=== PATIENT | female | born 1965 | race Caucasian/White ===

== ENCOUNTER → 2022-06-03 14:04 | Outpatient (CLI) | payer BC, SELFPAY ==
--- NOTE | ~2022-06-03 | MM_ITS ---
EXAMINATION: MM screening [facility] HISTORY: Screening TECHNIQUE: Craniocaudal and mediolateral oblique 3-D tomosynthesis images were obtained and synthetic 2-D images were generated. CAD analysis was submitted and interpreted. COMPARISON: Comparison to multiple prior studies sequentially, with oldest reviewed study dated 05/2012. BREAST PARENCHYMAL COMPOSITION: Breast composed of scattered areas of fibroglandular density FINDINGS: There is no evidence of suspicious mass, calcification, or architectural distortion to sugg est malignancy in either breast. There has been no suspicious interval change. IMPRESSION: 1. No mammographic evidence of malignancy. 2. Recommend routine screening mammography in one year. BI-RADS Category 1: Negative Reviewed, dictated and finalized at location A.
== END ==
PROVIDERS: PCP Registered Nurse; Visit Provider Nurse Practitioner
DX: Z12.31 Encounter for screening mammogram for malignant neoplasm of breast (principal)
CPT/HCPCS: 77063; 77067

== ENCOUNTER 2025-07-29 09:44 | Emergency (ER) | payer OTHER, SELFPAY ==
--- OUTSIDE RECORDS SUMMARY | 2018-06-01 12:00 | XMS_ITS | Continuity of Care Document ---
Author Organization [facility] Address [address] [place] [address] Phone Care Team Providers Care Field Research Associate Name Role Phone Hollis Philippe Unavailable Unavailable Procedures Procedure Date PT Re-evaluation Therapeutic Exercise Therapeutic Activities Therapeutic Exercise Therapeutic Activities Neuromuscular Re-Ed Therapeutic Exercise Therapeutic Activities Neuromuscular Re-Ed Therapeutic Exercise Neuromuscular Re-Ed Manual Therapy PT Evaluation Moderate Complexity Therapeutic Exercise Advance Directives Directive Yes / No Effective Date File Name No Information Encounters Encounter Description Practice Location Reason(s) For Visit Diagnoses Date Provider Providers Copied on Encounter [facility] [address], [place], [place], [id number], [place] tel:[phone] [place] Pain in right hipMuscle weakness (generalized )Stiffness of right hip, not elsewhere classified Saundra Shafer. [address] [facility], [address], [place], [address], [place]. tel:[phone] Referring Provider: Abdiaziz Waller[address] [place] [address], [address]. tel:[phone] [facility], [address], [place], [place], [id number], tel:[phone] [place] Pain in right hipMuscle weakness (generalized )Stiffness of right hip, not elsewhere classified Saundra Shafer. [address] [facility], [address], [address], . [phone] Referring Provider: [place], [address]. tel:[phone], [id number], tel:[phone] [place] Pain in right hipMuscle weakness (generalized )Stiffness of right hip, not elsewhere classified Saundra Shafer. [address] [facility], [address], [address], [place]. tel:[phone] Referring Provider: [place], [address]. tel:[phone], [id number], [place] tel:[phone] [place] Pain in right hipMuscle weakness (generalized )Stiffness of right hip, not elsewhere classified Saundra Shafer. [address] [facility], [address], [address], [place]. tel:[phone] Referring Provider: [place], [address]. tel:[phone], [id number], [place] tel:[phone] [place] Pain in right hipMuscle weakness (generalized )Stiffness of right hip, not elsewhere classified Saundra Shafer. [address] [facility], [address], [address], [place]. tel:[phone] Referring Provider: [place], [address]. tel:[phone] Family History Family Member Type Diagnosis Age At Onset No Information Payers Payer name Insurance type Covered alliance party ID Authoriza tion(s) [facility] [id number] Social History Type Description Quantity Date Captured Comments Sex Female Smoking Status No Information Chief Complaint And Reason For Visit No Information Reason For Referral Reason For Referral No Information History Of Present Illness Encounter Date Complaint History Of Prese nt Illness No Information Functional Status Date Functional Assessmen t No Information Instructions Date Instruction Additional Infor mation No Information Assessments Type Assessment Date No Information Patient Care Teams Name Effective Dates (start - stop) Status Members No Information
--- NOTE | ~2025-07-29 | XR_ITS ---
Lumbar spine series Indication: Back pain Comparison: None Technique: 3 views lumbar spine Findings: 5 nonrib-bearing lumbar-type vertebral bodies. Superior endplate compression deformity L1. No listhesis. Disc spaces maintained. Mild degenerative changes. SI joints congruent. Sacrum intact. IUD. IMPRESSION: 1. Superior endplate compression fracture L1. Reviewed, dictated and finalized at location R.
--- NOTE | ~2025-07-29 | XR_ITS ---
Examination: XR hand RT min 3V Clinical History: trauma FALL INJ PAIN Comparison: None Technique: 3 views right hand Findings/impression: 1. No fracture or dislocation identified right hand. 2. Severe degenerative changes DIP joint third and fifth digits. Reviewed, dictated and finalized at location R.
--- OUTSIDE RECORDS SUMMARY | 2025-07-29 09:46 | XMS_ITS | Clinical Summary ---
Author Organization [facility] Address [address] [place] [id number] Care Team Providers Care Hospital Superintendent Name Role Phone Ashly Riggins Primary Care Provider [phone] Allergies No known active allergies Medications Cholecalcifero l (VITAMIN D) 2000 units Cap Take 5,000 Units by mouth daily. Active cetirizine (ZYRTEC) 10 MG tablet Take 1 tablet (10 mg total) by mouth daily. Active levonorgestrel (MIRENA, 52 MG,) 20 MCG/DAY IUD Take by intrauterine route. Active omeprazole (PRILOSEC) 20 MG capsuleIndicat ions:Meza's esophagus with dysplasia Take 1 capsule (20 mg total) by mouth daily. 90 capsule 3 5 Active hydroCHLOROthi azide (HYDRODIURIL) 25 MG tabletIndicati ons:Localized edema Take 1 tablet (25 mg total) by mouth daily. 90 tablet 3 5 Active hydroCHLOROthi azide (HYDRODIURIL) 25 MG tabletIndicati ons:Localized edema Take 1 tablet (25 mg total) by mouth daily. 90 tablet 3 4 025 Discontin ued(Reord er) omeprazole (PRILOSEC) 20 MG capsuleIndicat ions:Meza's esophagus with dysplasia TAKE 1 CAPSULE BY MOUTH EVERY DAY 90 capsule 5 025 Discontin ued(Reord er) Active Problems Problem Noted Date Diagnosed Date Meza esophagus 05/09/2018 Decreased ROM of lower extremity 05/09/2018 Edema 05/09/2018 Hip pain 05/09/2018 Vitamin D deficiency 05/09/2018 Encounters Date Type Department Care Team Description 07/19/2025 Telephone [facility] [address] [address] Ashly Riggins APNP Radiology Results (Mammogram) 07/11/2025 7:20 AM CDT Laboratory Only [facility] Internal [address] [address] Ashly Riggins APNP 07/11/2025 - 07/11/2025 11:59 PM CDT Hospital Encounter [facility] [address] [place] [address] Ashly Riggins APNP Discharge Disposition: Home or Self Care (Routine Discharge) 07/11/2025 Travel 07/09/2025 Scan [facility] Scanned, [facility] Mammogram (SCAN) 07/05/2025 Results Follow-Up [facility] Internal [address] [address] Ashly Riggins APNP XR HAND RT 3V, XR HAND LT 3V, C-REACTIVE PROTEIN, Additional followed-up results: 9 07/04/2025 10:00 AM CDT Office Visit [address] [address] Ashly Riggins APNP Physical; Finger pain (Pt c/o pain/swelling in finger joints. She states her fingertips have become increasingly crooked over past few years. ) 07/04/2025 Travel from Last 3 Months Immunizations Immunization Administration Dates Next Due Influenza Adult (Generic) 07/28/2022 Pneumococcal (Prevnar 20) 07/04/2025 Shingrix 11/29/2023,08/24/2023 Tdap (Adacel) 07/04/2025 Family History Medical History Relation Comments Arthritis Father Heart Disease Father Stroke Father Arthritis Sister Anxiety Son Depression Son Relation Status Comments Father Sister Son Social History Tobacco Use Types Packs/Day Years Used Date Smoking Tobacco: Never Smokeless Tobacco: Never Tobacco Cessation:Counseling Given: No Alcohol Use Standard Drinks/Week Comments Yes 5.3 (1 standard drin k = 0.6 oz pure alcohol) Having bad reaction to alcohol last few years PHQ-2 Answer Date Recorded Patient Health Questionnaire-2 Score 0 07/04/2025 Comments No Sex and Gender Information Value Date Recorded Sex Assigned at Female 07/04/2025 10:09 AM CDT Legal Sex Female 8:47 PM CDT Gender Identity Not on file Sexual Orientation Not on file Last Filed Vital Signs Vital Sign Reading Time Taken Comments Blood Pressure 114/62 07/04/2025 10:17 AM CDT Pulse 89 07/04/2025 10:17 AM CDT Temperature 36.3 C (97.3 F) 07/04/2025 10:17 AM CDT Respiratory Rate 16 07/04/2025 10:17 AM CDT Oxygen Saturation 98% 07/04/2025 10:17 AM CDT Inhaled Oxygen Concentration - - Weight 97.8 kg (215 lb 8 oz) 07/04/2025 10:17 AM CDT Height 167 cm (5' 5.75) 07/04/2025 10:17 AM CDT Body Mass Index 35.05 07/04/2025 10:17 AM CDT Plan of Treatment Health Maintenance Due Date Last Done Comments Colorectal Cancer Screening Colonoscopy (10 Years) 1965 EGD-Meza's Surveillance 1967 Hepatitis B Vaccines (1 of 3 - 19+ 3-dose series) 12/28/1986 Cervical Cancer Screening Pap with HPV Testing (Age 30 to 64) Every 5 Years 12/28/1997 COVID-19 Vaccine ( season) 2025 08/18/2023, 07/27/2022, 08/08/2021, Additional history exists Influenza Adult (#1) 2025 07/28/2022 Annual Physical 07/04/2026 07/04/2025, 0803/2024, 11/11/2022 Mammogram Screening 07/09/2027 07/09/2025, 07/09/2025, 06/03/2022 Cervical Cancer Screening Pap Smear (Age 30 to 64) Every 3 Years 05/23/2028 07/04/2025, 05/23/2024, 01/21/2021 Cervical Cancer Screening with HPV 05/23/2028 DTaP, Tdap and Td Vaccines (2 - Td or Tdap) 07/04/2035 07/04/2025 Hepatitis C Completed 11/20/2022 Zoster Vaccines Completed 11/29/2023, 08/24/2023 PHQ-2 (Physician [place]) Completed 07/04/2025 Pneumococcal Vaccine: 50+ Years Completed 07/04/2025 Hepatitis A Vaccines Aged Out No long er eligible based on patient's age to complete this topic Meningococcal B Vaccine Aged Out No l onger eligible based on patient's age to complete this topic Meningococcal Vaccine Aged Out No satnam rafi eligible based on patient's age to complete this topic RSV Immunizations Under 20 Months Aged Out No longer eligible based on patient's age to complete this topic Procedures Procedure Name Priority Date/Time Associated Diagnosis Comments COLLECTION VENOUS BLOOD VENIPUNCTURE Routine 07/11/2025 7:35 AM CDT Bilateral hand pain General medical examination Meza's esophagus with dysplasia Localized edema BMI 35.0-35.9,adult URINALYSIS, AUTO, COMPLETE Routine 07/11/2025 7:30 AM CDT General medical examination Localized edema CYCLIC CITRULLINATED PEPTIDE (CCP)ANTIBODY(IGG) Routine 07/11/2025 7:26 AM CDT Bilateral hand pain CBC W/DIFF AUTOMATED Routine 07/11/2025 7:26 AM CDT General medical examination BMI 35.0-35.9,adult LIPID PANEL Routine 07/11/2025 7:26 AM CDT General medical examination BMI 35.0-35.9,adult TSH W/REFLEX Routine 07/11/2025 7:26 AM CDT General medical examination BMI 35.0-35.9,adult VITAMIN D, 25 OH Routine 07/11/2025 7:26 AM CDT Vitamin D deficiency URIC ACID BLOOD Routine 07/11/2025 7:26 AM CDT General medical examination Localized edema BMI 35.0-35.9,adult COMPREHENSIVE METABOLIC PANEL Routine 07/11/2025 7:26 AM CDT General medical examination Meza's esophagus with dysplasia Localized edema BMI 35.0-35.9,adult RHEUMATOID FACTOR, QUANT Routine 07/11/2025 7:26 AM CDT Bilateral hand pain C-REACTIVE PROTEIN Routine 07/11/2025 7: 26 AM CDT Bilateral hand pain MAMMOGRAM GENERIC (SCAN ORDER) 07/09/2025 XR HAND LT 3V Routine 07/04/2025 11:01 AM CDT Bilateral hand pain XR HAND RT 3V Routine 07/04/2025 11:01 AM CDT Bilateral hand pain HEPATITIS C ANTIBODY W/RFX TO HCV RNA Routine 11/20/2022 7:33 AM FABRIC NORMALIZER Need for hepatitis C screening test from Last 3 Months or Most Recently Relevant to Health Maintenance Results * (ABNORMAL) URINALYSIS (07/11/2025 7:30 AM CDT) COLOR (U) YELLOW 07/11/2025 4:34 PM CDT [facility] TRANSPARENCY HAZY(A) CLEAR 07/11/2025 4:34 PM CDT [facility] SPECIFIC GRAVITY (U) 1.020 1.003 - 1.040 07/11/2025 4:34 PM CDT [facility] U PH 6.5 5.0 - 9.0 07/11/2025 4:34 PM CDT [facility] PROTEIN RANDOM (U) TRACE(A) NEGATIVE 07/11/2025 4:34 PM CDT [facility] GLUCOSE (U) NEGATIVE NEGATIVE 07/11/2025 4:34 PM CDT [facility] KETONES MG/DL (U) NEGATIVE NEGATIVE 07/11/2025 4:34 PM CDT [facility] BILIRUBIN (U) NEGATIVE NEGATIVE 07/11/2025 4:34 PM CDT [facility] BLOOD (U) TRACE(A) NEGATIVE 07/11/2025 4:34 PM CDT [facility] UROBILINOGEN 1.0 0.0 - 2.0 EU/DL 07/11/2025 4:34 PM CDT [facility] NITRITES NEGATIVE NEGATIVE 07/11/2025 4:34 PM CDT [facility] LEUKOCYTES (U) TRACE(A) NEGATIVE 07/11/2025 4:34 PM CDT [facility] RBC/HPF 0-3 0 - 3 /HPF 07/11/2025 4:34 PM CDT [facility] WBC/HPF 0-3 0 - 3 /HPF 07/11/2025 4:34 PM CDT [facility] EPI/HPF 4-9 /HPF 07/11/2025 4:34 PM CDT [facility] BACTERIA (U) TRACE(A) NONE SEEN 07/11/2025 4:34 PM CDT [facility] COMMENT (U) Less than 12 ml urine submitted. 07/11/2025 4:34 PM CDT [facility] AMORPHOUS SEDIMENT PRESENT 07/11/2025 4:34 PM CDT [facility] URINE SPECIMEN OBTAINED BY CLEAN CATCH PROCEDURE / Unknown 07/11/2025 7:30 AM CDT us Ashly BAUTISTA URINE ORDERABLES Final Resu lt [facility] [address] [place] [address], * TSH W/REFLEX (07/11/2025 7:26 AM CDT) TSH 1.619 0.358 - 3.740 uIU/ML 07/11/2025 3:40 PM CDT [facility] 07/11/2025 7:26 AM CDT Ashly [facility] Final Resul t [facility] [address] [place] [address], * RHEUMATOID FACTOR, QUANT (07/11/2025 7:26 AM CDT) RHEUMATOID FACTOR <10 <15 IU/ML 07/11/2025 5:55 PM CDT [facility] 07/11/2025 7:26 AM CDT Ashly [facility] Final Resul t Performing Organization Address [facility] Co de Phone Number [facility] [address] [place] [address], [place] [phone] * CYCLIC CITRULLINATED PEPTIDE (CCP)ANTIBODY(IGG) (07/11/2025 7:26 AM CDT) CITRULLINE PEPTIDE ANTIBODY <[address] [employer] [facility] Comment: Reference Range Negative: <20 Weak Positive: 20-39 Moderate Positive: 40-59 Strong Positive: >59 07/11/2025 7:26 AM CDT 07/12/2025 4:22 AM CDT Narrative Resulting Agency Comment Performing Organization Information: Site ID: [id number] Name: [facility] Address: [address] [place] [address] Director: Masoud Menjivar MD Ashly [facility] Final Resul t Performing Organization Address City/[facility]/ZIP Co de Phone Number Mobile Authentication [facility] [employer] [facility] [address] [place] [address], * (ABNORMAL) COMPREHENSIVE METABOLIC PANEL (07/11/2025 7:26 AM CDT) [facility] SODIUM S/P/B 145 136 - 145 MMOL/L 07/11/2025 4:15 PM CDT [facility] POTASSIUM S/P/B 3.8 3.5 - 5.1 MMOL/L 07/11/2025 4:15 PM CDT [facility] CHLORIDE S/P/B 105 98 - 107 MMOL/L 07/11/2025 4:15 PM CDT [facility] CO2 30.7 21 - 32 MMOL/L 07/11/2025 4:15 PM CDT [facility] GLUCOSE 93 70 - 99 MG/DL 07/11/2025 3:40 PM CDT [facility] BUN 14 7 - 18 MG/DL 07/11/2025 3:40 PM CDT [facility] CREATININE S/P/B 0.62 0.55 - 1.02 MG/DL 07/11/2025 3:40 PM CDT [facility] CALCIUM S/P/B 9.1 8.4 - 10.5 MG/DL 07/11/2025 3:40 PM CDT [facility] BILIRUBIN TOTAL S/P/B 1.2(H) 0.2 - 1.0 MG/DL 07/11/2025 3:40 PM CDT [facility] ALKALINE PHOSPHATASE S/P/B 60 46 - 118 U/L 07/11/2025 3:40 PM CDT [facility] AST 15 15 - 37 U/L 07/11/2025 3:40 PM CDT [facility] ALT 20 14 - 59 U/L 07/11/2025 3:40 PM CDT [facility] TOTAL PROTEIN S/P/B 6.9 6.4 - 8.2 G/DL 07/11/2025 3:40 PM CDT [facility] ALBUMIN S/P/B 4.0 3.4 - 5.0 G/DL 07/11/2025 3:40 PM CDT [facility] ANION GAP 9.3 5 - 15 MMOL/L 07/11/2025 4:15 PM CDT [facility] Comment:REFERENCE RANGE NOT ESTABLISHED OSMOLALITY (CALC) 300 MOSM/KG 025 4:15 PM CDT [facility] Comment:REFERENCE RANGE NOT ESTABLISHED GFR ESTIMATE >90 >90 ML/MIN/1. 73 M2 07/11/2025 3:40 PM CDT [facility] GFR NOTES GFR REFERENCE S: 07/11/2025 3:40 PM CDT [facility] Comment: THE ESTIMATED GFR IS CALCULATED USING THE 2020 CKD-EPI EQUATION. THE FOLLOWING CATEGORIES FOR GRADING RENAL FUNCTION ARE RECOMMENDED BY THE INTERNATIONAL SOCIETY OF NEPHROLOGY (KDIGO 2012 CLINICAL PRACTICE GUIDELINE). G1,NORMAL OR HIGH: >89 ml/min/1.73 m2 G2,MILDLY DECREASED: 60-89 ml/min/1.73 m2 G3A,MILDLY TO MODERATELY DECREASED: 45-59 ml/min/1.73 m2 G3B,MODERATELY TO SEVERELY DECREASED: 30-44 ml/min/1.73 m2 G4,SEVERELY DECREASED: 15-29 ml/min/1.73 m2 G5,KIDNEY FAILURE: <15 ml/min/1.73 m2 07/11/2025 7:26 AM CDT Ashly [facility] Final Resul t [facility] [address] [place] [address], * (ABNORMAL) LIPID PANEL (07/11/2025 7:26 AM CDT) CHOLESTEROL 197 <200 MG/DL 07/11/2025 3:40 PM CDT [facility] TRIGLYCERIDES 64 <150 MG/DL 07/11/2025 3:40 PM CDT [facility] HDL 56 >40 MG/DL 07/11/2025 3:40 PM CDT [facility] LDL-C 128(H) <100 MG/DL 07/11/2025 3:40 PM CDT [facility] VLDL CALCULATION 13 5 - 28 MG/DL 07/11/2025 3:40 PM CDT [facility] CHOL/HDL RATIO 3.5 0.0 - 4.0 07/11/2025 3:40 PM CDT [facility] LDL/HDL 2.3(H) 0.41 - 2.13 07/11/2025 3:40 PM CDT [facility] NON HDL CHOLESTEROL 141(H) <140 MG/DL 07/11/2025 3:40 PM CDT [facility] 07/11/2025 7:26 AM CDT Ashly [facility] Final Resul t Performing Organization Address City/[facility]/ZIP Co de Phone Number [address] [address], * C-REACTIVE PROTEIN (07/11/2025 7:26 AM CDT) C-REACTIVE PROTEIN 0.27 <0.30 mg/dL 07/11/2025 3:40 PM CDT [facility] 07/11/2025 7:26 AM CDT Ashly [facility] Final Resul t Performing Organization Address City/[facility]/ZIP Co de Phone Number [address] [address], [place] [phone] * CBC W/DIFF AUTOMATED (07/11/2025 7:26 AM CDT) WBC 5.48 4.00 - 10.80 x10'3/uL 07/11/2025 3:38 PM CDT [facility] RBC 4.49 4.10 - 5.40 x10'6/uL 07/11/2025 3:38 PM CDT [facility] HGB 12.9 12.0 - 16.0 G/DL 07/11/2025 3:38 PM CDT [facility] HCT 38.9 36.0 - 47.0 % 07/11/2025 3:38 PM CDT [facility] MCV 86.6 78.0 - 100.0 FL 07/11/2025 3:38 PM CDT [facility] MCH 28.7 27.0 - 31.0 PG 07/11/2025 3:38 PM CDT [facility] MCHC 33.2 33.0 - 36.0 G/DL 07/11/2025 3:38 PM CDT [facility] RDW 12.8 11.5 - 14.5 % 07/11/2025 3:38 PM CDT [facility] PLT 295 150 - 350 x10'3/uL 07/11/2025 3:38 PM CDT [facility] MPV 10.4 7.4 - 10.4 FL 07/11/2025 3:38 PM CDT [facility] DIFFERENTIAL TYPE AUTOMATED DIFFERENTIAL 07/11/2025 3:38 PM CDT [facility] NEUTROPHILS % 55.6 % 07/11/2025 3:38 PM CDT [facility] LYMPHOCYTES % 29.6 % 07/11/2025 3:38 PM CDT [facility] MONOCYTES % 8.0 % 07/11/2025 3:38 PM CDT [facility] EOSINOPHILS % 5.5 % 07/11/2025 3:38 PM CDT [facility] BASOPHILS % 0.9 % 07/11/2025 3:38 PM CDT [facility] IMMATURE GRANS % 0.4 % 07/11/2025 3:38 PM CDT [facility] ABS. NEUTROPHILS 3.05 1.60 - 8.30 x10'3/uL 07/11/2025 3:38 PM CDT [facility] ABS. LYMPHOCYTES 1.62 0.80 - 4.70 x10'3/uL 07/11/2025 3:38 PM CDT [facility] ABS. MONOCYTES 0.44 0.00 - 1.50 x10'3/uL 07/11/2025 3:38 PM CDT [facility] ABS. EOSINOPHILS 0.30 0.00 - 0.40 x10'3/uL 07/11/2025 3:38 PM CDT [facility] ABS. BASOPHILS 0.05 0.00 - 0.20 x10'3/uL 07/11/2025 3:38 PM CDT [facility] ABS. IMMATURE GRANULOCYTES 0.02 0.00 - 0.03 x10'3/uL 07/11/2025 3:38 PM CDT [facility] 07/11/2025 7:26 AM CDT us Ashly [facility] Final Resul t [facility] [address] [place] [address], * VITAMIN D, 25 OH (07/11/2025 7:26 AM CDT) Pathologist [facility] VITAMIN D 25 HYDROXY TOTAL S/P/B 72.1 30 - 100 NG/ML 07/11/2025 3:40 PM CDT [facility] Comment: DEFICIENT <20 INSUFFICIENT 20-30 SUFFICIENT 30-100 07/11/2025 7:26 AM CDT Ashly Yuri Vaishnavi [facility] Final Resul t Performing Organization Address City/[facility]/ZIP Co de Phone Number [facility] [address] [place] [address], * URIC ACID BLOOD (07/11/2025 7:26 AM CDT) URIC ACID 3.9 2.6 - 6.0 MG/DL 07/11/2025 4:27 PM CDT [facility] 07/11/2025 7:26 AM CDT Ashly Yuri Vaishnavi [facility] Final Resul t Performing Organization Address [facility] Co de Phone Number [address] [address], * MAMMOGRAM GENERIC (SCAN ORDER) (07/09/2025) Anatomical Region Laterality Modality Other 07/09/2025 [facility] Scanned SCANNING Final Resu lt * XR HAND RT 3V (07/04/2025 11:01 AM CDT) Anatomical Region Laterality Modality Hand Radiographic Darya ging 07/04/2025 3:55 PM CDT Impressions 07/04/2025 4:29 PM CDT IMPRESSION: 1. No radiographic evidence of acute fracture or malalignment. 2. 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 3. 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 The attending radiologist has reviewed the image(s) and agrees with the content of this report. Ordered By: ASHLY RIGGINS Interpreted By: Marshall Cavanaugh MD, 07/04/2025 3:55 PM Narrative 07/04/2025 4:29 PM CDT [facility] Internal [address] [address] XR HAND RT 3V, XR HAND LT 3V: 07/04/2025 10:52 AM CLINICAL INDICATION: Chronic bilateral hand and finger joint pain. COMPARISON: None TECHNIQUE: PA, lateral, oblique views of bilateral hands FINDINGS: Right hand: No radiographic evidence of acute fracture or malalignment. There is joint space narrowing in the distal interphalangeal joints notable in the second through fourth digits. Severe subchondral erosions in the third and fifth digit distal interphalangeal joint. Probable overhanging edges at the third distal interphalangeal joint along the dorsum. Base of thumb is relatively preserved. Left hand: No radiographic evidence of acute fracture or malalignment. There is joint space narrowing in the interphalangeal joints most prominent at the second through third distal interphalangeal joints. Scattered osteophytes about the phalanges. The base of thumb is relatively preserved. Procedure Note Aldo Galicia MD - 07/04/2025 [facility] Internal [facility] - [address] [address] XR HAND RT 3V, XR HAND LT 3V: 07/04/2025 10:52 AM CLINICAL INDICATION: Chronic bilateral hand and finger joint pain. COMPARISON: None TECHNIQUE: PA, lateral, oblique views of bilateral hands FINDINGS: Right hand: No radiographic evidence of acute fracture or malalignment.There is joint space narrowing in the distal interphalangeal jointsnotable in the second through fourth digits. Severe subchondral erosionsin the third and fifth digit distal interphalangeal joint. Probableoverhanging edges at the third distal interphalangeal joint along thedorsum. Base of thumb is relatively preserved. Left hand: No radiographic evidence of acute fracture or malalignment.There is joint space narrowing in the interphalangeal joints mostprominent at the second through third distal interphalangeal joints.Scattered osteophytes about the phalanges. The base of thumb is relativelypreserved. IMPRESSION: 1. No radiographic evidence of acute fracture or malalignment. 2. Moderate to severe erosive osteoarthritis of the right third and fifthdigit distal interphalangeal joint. 3. Moderate to severe osteoarthritis of the interphalangeal joints of theleft hand. The attending radiologist has reviewed the image(s) and agrees with thecontent of this report. Ordered By: ASHLY RIGGINS Interpreted By: Marshall Cavanaugh MD, 07/04/2025 3:55 PM Ashly Riggins APNP GENERAL IMAGING Final Resul t * XR HAND LT 3V (07/04/2025 11:01 AM CDT) Anatomical Region Laterality Modality Hand Radiographic Darya ging 07/04/2025 3:55 PM CDT Impressions 07/04/2025 4:29 PM CDT IMPRESSION: 1. No radiographic evidence of acute fracture or malalignment. 2. 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 3. 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 The attending radiologist has reviewed the image(s) and agrees with the content of this report. Ordered By: ASHLY RIGGINS Interpreted By: Marshall Cavanaugh MD, 07/04/2025 3:55 PM Narrative 07/04/2025 4:29 PM CDT [facility] [place] [address] XR HAND RT 3V, XR HAND LT 3V: 07/04/2025 10:52 AM CLINICAL INDICATION: Chronic bilateral hand and finger joint pain. COMPARISON: None TECHNIQUE: PA, lateral, oblique views of bilateral hands FINDINGS: Right hand: No radiographic evidence of acute fracture or malalignment. There is joint space narrowing in the distal interphalangeal joints notable in the second through fourth digits. Severe subchondral erosions in the third and fifth digit distal interphalangeal joint. Probable overhanging edges at the third distal interphalangeal joint along the dorsum. Base of thumb is relatively preserved. Left hand: No radiographic evidence of acute fracture or malalignment. There is joint space narrowing in the interphalangeal joints most prominent at the second through third distal interphalangeal joints. Scattered osteophytes about the phalanges. The base of thumb is relatively preserved. Procedure Note Aldo Galicia MD - 07/04/2025 [facility] [place] [address] XR HAND RT 3V, XR HAND LT 3V: 07/04/2025 10:52 AM CLINICAL INDICATION: Chronic bilateral hand and finger joint pain. COMPARISON: None TECHNIQUE: PA, lateral, oblique views of bilateral hands FINDINGS: Right hand: No radiographic evidence of acute fracture or malalignment.There is joint space narrowing in the distal interphalangeal jointsnotable in the second through fourth digits. Severe subchondral erosionsin the third and fifth digit distal interphalangeal joint. Probableoverhanging edges at the third distal interphalangeal joint along thedorsum. Base of thumb is relatively preserved. Left hand: No radiographic evidence of acute fracture or malalignment.There is joint space narrowing in the interphalangeal joints mostprominent at the second through third distal interphalangeal joints.Scattered osteophytes about the phalanges. The base of thumb is relativelypreserved. IMPRESSION: 1. No radiographic evidence of acute fracture or malalignment. 2. Moderate to severe erosive osteoarthritis of the right third and fifthdigit distal interphalangeal joint. 3. Moderate to severe osteoarthritis of the interphalangeal joints of theleft hand. The attending radiologist has reviewed the image(s) and agrees with thecontent of this report. Ordered By: ASHLY RIGGINS Interpreted By: Marshall Cavanaugh MD, 07/04/2025 3:55 PM Ashly [facility] Final Resul t * HEPATITIS C ANTIBODY W/RFX TO HCV RNA ([facility] ONLY) (11/20/2022 7:33 AM FABRIC NORMALIZER) HEPATITIS C AB NON-REACT ADIEL NON-REACT ADIEL Mobile [employer] [facility] SIGNAL TO CUTOFF <0.02 <1.[address] [facility] [address] Comment: HCV antibody was non-reactive. There is no laboratory evidence of HCV infection. In most cases, no further action is required. However, if recent HCV exposure is suspected, a test for HCV RNA (test code 13829) is suggested. For additional information please refer to http://education.Birchbox/faq/PSE92e2 (This link is being provided for informational/ educational purposes only.) 11/20/2022 7:33 AM FABRIC NORMALIZER 11/21/2022 4:16 AM FABRIC NORMALIZER Narrative Resulting Agency Comment Performing Organization Information: Site ID: [id number] Name: Lu Jimenez Address: [address] [place] [address] Director: Masoud Menjivar MD us Ashly [facility] Final Resul t [facility] Mobile [employer] [facility] [address] [place], [place] [address] from Last 3 Months or Most Recently Relevant to Health Maintenance Insurance Care Teams Hospital Superintendent Relationship Specialty Start Date End Date Ashly Riggins APNP [address] [place] [id number] PCP - General NURSE PRACTITIONER 11/08/18
--- OUTSIDE RECORDS SUMMARY | 2025-07-29 09:46 | XMS_ITS | Clinical Summary ---
Author Organization [facility] Address [address] [place] [id number] Care Team Providers Care Logging Contractor Name Role Phone Fanny Riggins Primary Care Provider + Encounters Date Type Department Care Team Description 07/09/2025 2:46 PM CDT - 07/09/2025 11:59 PM CDT Hospital Encounter [address] [id number] Screening mammogram, encounter for Discharge Disposition: Discharge to home or self care from Last 3 Months Family History Medical History Relation Name Comments Breast cancer Paternal Grandmother Relation Name Status Comments Paternal Grandmother Social History Tobacco Use Types Packs/Day Years Used Date Smoking Tobacco: Never Assessed Comments No Sex and Gender Information Value Date Recorded Sex Assigned at Not on file Legal Sex Female 9:06 AM CDT Gender Identity Not on file Sexual Orientation Not on file Obstetrics History Para Term AB IAB SAB Ectopic Multiple Livin g Live Births 2 2 Date Outcome GA Total Labor Labor/2nd/3rd Weight Sex Type Anes PTL [place] A1 A5 Name Clin Last Filed Vital Signs Vital Sign Reading Time Taken Comments Blood Pressure - - Pulse - - Temperature - - Respiratory Rate - - Oxygen Saturation - - Inhaled Oxygen Concentration - - Weight 98.4 kg (217 lb) 07/09/2025 3:06 PM CDT Height 167.6 cm (5' 6) 07/09/2025 3:06 PM CDT Body Mass Index 35.02 07/09/2025 3:06 PM CDT Plan of Treatment Health Maintenance Due Date Last Done Comments Cervical Cancer Screening 1967 Colon Cancer Screening-Colonoscopy 1967 Depression Screening 1967 Hepatitis C Screening 1967 Hepatitis B Screening 12/28/1985 Regular Well Visit/Exam 18-64 12/28/1985 Covid-19 Vaccine (6 - 2025-26 season) 2025 08/18/2023, 07/27/2022, 08/08/2021, Additional history exists Influenza Vaccine (#1) 2025 08/18/2023, 2021 Breast Cancer Screening-Mammogram 07/09/2026 07/09/2025 DTaP/Tdap/Td Vaccine (2 - Td or Tdap) 07/04/2035 07/04/2025 Zoster Vaccine Completed 11/29/2023, 08/24/2023 Pneumococcal vaccine <65 Aged Out 07/04/2025 No longer eligible based on patient's age to complete this topic Procedures Procedure Name Priority Date/Time Associated Diagnosis Comments SCREENING MAMMOGRAM BILATERAL W ITZ Schedule Routine, Read Routine (OP Routine) 07/09/2025 3:04 PM CDT Screening mammogram, encounter for from Last 3 Months Results * Screening Mammogram Bilateral W Itz (07/09/2025 3:04 PM CDT) Anatomical Region Laterality Modality Breast Bilateral Mammography Impressions 07/10/2025 1:20 PM CDT Bilateral No evidence of malignancy in either breast. OVERALL BI-RADS FINAL ASSESSMENT: 2 - Benign RECOMMENDATION: Recommend bilateral annual screening mammography. Narrative 07/10/2025 1:20 PM CDT EXAMINATION: Screening Mammogram Bilateral W Itz: 07/09/2025 COMPARISON: Relevant prior studies available at the time of interpretation were reviewed, including the most recent mammogram on: 06/03/2022. TECHNIQUE: Mammography was performed with 2D and 3D digital breast tomosynthesis (DBT) images. CAD was utilized. BREAST PARENCHYMAL COMPOSITION: There are scattered areas of fibroglandular density. FINDINGS: There are benign scattered calcifications in both breasts. No suspicious mass, suspicious calcifications, or architectural distortion is seen in either breast. There has been no suspicious interval change. us Self Screening Mammogram IMG MAMMO PROCEDURES Fi nal Result from Last 3 Months Insurance [facility] Address: [address] [facility] Address: [place] [address] Care Teams Logging Contractor Relationship Specialty Start Date End Date Fanny Riggins PA [address] [place] [id number] PCP - General Nurse Practitioner 07/04/25
--- OUTSIDE RECORDS SUMMARY | 2025-07-29 09:46 | XMS_ITS | Clinical Summary ---
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 Gender Identity Not on file Sexual Orientation Not on file Plan of Treatment Health Maintenance Due Date Last Done Comments Hepatitis C Virus (HCV) Screening 1965 TdaP Immunization 1965 Hepatitis B Immunization (1 of 3 - 19+ 3-dose series) 12/28/1986 Pap Smear 12/28/1988 Cervical Cancer Screening (CCS) 12/28/1997 HPV/Cotest 12/28/1997 Cologuard 12/28/2012 Colonoscopy 12/28/2012 Colorectal Cancer Screening 12/28/2012 Immunochemical Fecal Occult Blood 12/28/2012 Pneumococcal Immunization (5 0+ years) (1 of 1 - PCV) 12/28/2017 Zoster Immunization (1 of 2) 12/28/2017 Influenza Immunization (#1) 2025 SARS-COV-2 Immunization ( season) 2025 Respiratory Syncytial Virus (RSV) Immunization (Adult) (1 - 1-dose 75+ series) 12/28/2042 Human Papillomavirus (HPV) Immunization Aged Out No longer eligible b ased on patient's age to complete this topic Meningococcal Immunization (ACWY) Aged Out No longer eligible based on patient's age to complete this topic Rotavirus Immunization Aged Out No lo nger eligible based on patient's age to complete this topic
--- OUTSIDE RECORDS SUMMARY | 2025-07-29 09:46 | XMS_ITS | Data Portability ---
Author Organization [facility] Address [address] [place] [address] Care Team Providers Care Athletic Director Name Role Phone ASHLY HAYES Primary Care Provider [phone] Assessment Encounter Date Assessment Date Assessment LastModified by Organization Details LastModified Time 03/16/2022 03/16/2022 Annual gynecological exam performed. Patient will come back in a year unless there are new symptoms. Not available 03/13/2022 16:50:19 05/23/2024 05/23/2024 Annual gynecological exam performed. Patient will come back in a year unless there are new symptoms. [email or web address] Not available 05/23/2024 11:03:08 07/04/2025 07/04/2025 Annual gynecological exam performed. Patient will come back in a year unless there are new symptoms. [email or web address] Not available 07/04/2025 09:06:55 Plan of Treatment Reminders Order Date Submit Date Provider Last Modified By Organization Details Last Modified Time Details Appointments None recorded. Lab pap, IG + HR HPV - HPV regardless but if HPV is positive need subtyping 16,18/45 2024 025 [facility] ([facility]), [address], [place], [address], 13:41:[address] referral - Needs full body skin check, including vulva Please contact this patient to schedule an appointment Attached to this referral are the patients demographic s and most recent office visit notes. If you have any questions or require further information , please contact me at [phone]. Thank you, Berna, Referral's [address] [place] [facility], [address] [place], [address], 3 05:01:08 Procedures None recorded. Surgeries None recorded. Imaging MAMMO, screening, digital, bilateral 2024 025 [facility], [facility] [address], [place], [address], 5 14:24:39 MAMMO, screening, digital, bilateral 2023 024 [facility], [address], [place], [address], 5 05:01:19 MAMMO, screening, bilateral 2021 022 [facility], [address], [place], [address], 2 16:22:53 Medication Orders None recorded. Patient TargetsNo targets recorded. Patient Instructions Encounter Date Encounter Id Patient Instructions Last Modified By Organization Details Last Modified Time 01/21/2021 [id number] intrauterine device (IUD) insertion: care instructions [email or web address] Not available 01/21/2021 17:02:49 Reason for Referral Client Consultant Referral for M elanocytic nevus of skin Needs full body skin check, including vulvaPlease contact this patient to schedule an appointmentAttached to this referral are the patients demographics and most recent office visit notes.If you have any questions or require further information, please contact me at [phone].Thank you,Berna, Referral's Referring Physician: Dalia Mendes, [employer], Encounter Date: 03/16/2022 Results Created Date Observation Date Name Description Value Unit Range Abnormal Flag Note LastModifiedBy Organization Detail LastModifiedTime 01/17/20 21 01/16/2021 pap, IG Pap test SEE RESULT S BELOW CASE REPOR T: Cytol ogy Gynec ologi krishna Repor t Case: [id number] Autho mason ecsia Provi celina: Ann Piña CNM Colle cted: 01/16 1621 Order ing Locat ion: [place] [facility] Recei bree: 01/17 0637 First Scree n: Laura martin, Brandon regalado, CT Speci men: Scree ignacio Pap - Image d, Cervi x STATE MENT OF ADEQU ACY: Satis facto ry for evalu ation Trans forma tion zone compo nent prese nt FINAL DIAGN OSIS: Negat gigi for Squam ous Intra epith elial Lesio n Elect nancy high arsh d by Laura martin, Brandon regalado, CT on 021 at 12:59 PM ----- ----- ----- ----- ----- ----- ----- ----- ----- ----- ----- ----- ----- ----- ----- ----- ----- ---- HPV RESUL TS: HPV mRNA E6/E7 : No HPV mRNA Detec mark NOTE: This high risk HPV mRNA assay detec ts fourt een high- risk HPV types (16, 18, 31, 33, 35, 39, 45, 51, 52, 56, 58, 59, 66, 68) witho ut diffe renti ation . CHART ABLE COMME NT: Note: This speci men was revie wed by a Cytot echno logis t and/o r Patho logis t (as indic ated in this repor t) after evalu ation using the Thinp rep Imagi ng Syste m. CLINI KRISHAN INFOR MATIO N: Menst rual Statu s: LMP (if appli cable ): Clini krishna Histo ry/Pr eviou s Pap: Type of Neopl alfonzo (if appli cable ): Other Histo ry: Hormo carola (if appli cable ): PAP EDUCA LEIF L NOTE: The Pap Test is a scree ignacio test with an inher ent false negat gigi rate. Liqui d-bas e sampl ing may decre ase, but will not elimi juventino, false negat gigi resul ts. A negat gigi resul t does not precl ude the prese nce and/o r devel opmen t of disea se, since the prese nce of abnor mal cells in the sampl e depen ds on the locat ion of the lesio n and sampl ing techn ique. Kayla nued regul ar scree ignacio is the best metho d of cance r preve ntion . If repor mark cytol ogic findi ng do not corre late with physi krishna and/o r histo rical findi ngs, furth er inves tigat ion is recom chapo d, as clini rosemary keenan nted. Not Available [facility] (Lab) [address], [place], [address], 01/17/2021 16:52:33 01/21/20 21 01/20/2021 beta- HCG, quant itati ve, serum or plasm a B-HCG 1.1 mIU/m L This assay was perfo rmed using [employer] ratio n reage nts and test kits. Value s obtai taylor with other assay metho ds or kits canno t be used inter ayers eably . Refer ence Range s: Non-p regna nt, preme nopau darrick women : 0.0-5 .3 mIU/m L Postm enopa usal women : 0.0-7 .0 mIU/m L Sayra l Pregn lupe: Gesta leif l Age bHCG Conc. - mIU/m L 3 Weeks 5.8 - 71.7 4 Weeks 9.5 - 750 5 Weeks 217-7 138 6 Weeks 158 - 31,79 5 7 Weeks 3,697 - 162,5 63 8 Weeks 32,06 5 - 149,5 71 9 Weeks 63,80 3 - 151,4 10 10 Weeks 46,50 9 - 186,9 77 12 Weeks 27,83 2 - 210,6 12 14 Weeks 13,95 0 - 62,53 0 15 Weeks 12,03 9 - 70,97 1 16 Weeks 9,040 - 56,45 1 17 Weeks 8,175 - 55,86 8 18 Weeks 8,099 - 58,17 6 Not Available [facility] (Lab) [address], [place], [address], 01/21/2021 05:18:39 01/22/20 21 01/21/2021 CT + NG + TV, RNA, unspe cifie d speci men chlamydia trachomatis, PCR Negati ve negati ve Not Available [facility] (Lab) [address], [place], [address], 01/22/2021 15:58:15 01/22/20 21 01/21/2021 CT + NG + TV, RNA, unspe cifie d speci men neisseria gonorrhoeae, PCR Negati ve negati ve Not Available [facility] (Lab) [address], [place], [address], 01/22/2021 15:58:15 01/22/20 21 01/21/2021 CT + NG + TV, RNA, unspe cifie d speci men trichomonas vaginalis ribosomal RNA (rrna) Negati ve negati ve Not Available [facility] (Lab) [address] [place], [address], 01/22/2021 15:58:15 05/23/20 24 05/23/2024 IMAGE GUIDE D PAP AND HPV REGAR DLESS image guided Pap, HPV regardless of Pap result SEE RESULT S BELOW CASE REPOR T: Cytol ogy Gynec ologi krishna Repor t Case: [id number] Provi celina: Dalia Mendes, MARY Colle cted: 05/23 1627 Order ing Locat ion: [place] [facility] Recei bree: 05/24 0832 First Scree n: Strut z, Willi am, CT Speci men: Scree ignacio Pap - Image d, Cervi x STATE MENT OF ADEQU ACY: Satis facto ry for evalu ation Trans forma tion zone compo nent prese nt ----- ----- ----- ----- ----- ----- ----- ----- ----- ----- ----- ----- ----- ----- ----- ----- ----- ---- FINAL DIAGN OSIS: Negat gigi for Intra epith elial Lesradha álvarez or Aidee brewer (NIL) . Elect nancy caban d by Brandon Schultz am, CT on 2023 at 8:08 AM ----- ----- ----- ----- ----- ----- ----- ----- ----- ----- ----- ----- ----- ----- ----- ----- ----- ---- HPV RESUL TS: HPV mRNA E6/E7 : No HPV mRNA Detec mark NOTE: This high risk HPV mRNA assay detec ts fourt een high- risk HPV types (16, 18, 31, 33, 35, 39, 45, 51, 52, 56, 58, 59, 66, 68) witho ut diffe renti ation . COMME NT: This speci men was revie wed by a Cytot echno logis t and/o r Patho logis t (as indic ated in this repor t) after evalu ation using the Thinp rep Imagi ng Syste m. CLINI KRISHNA INFOR MATIO N: Menst rual Statu s: LMP (if appli cable ): Clini krishna Histo ry/Pr eviou s Pap: Type of Neopl alfonzo (if appli cable ): Signi ficcapri t Clini krishna Findi ngs: Other Histo ry: Hormo carola (if appli cable ): PAP EDUCA LEIF L NOTE: The Pap Test is a scree ignacio test with an inher ent false negat gigi rate. Liqui d-bas ed sampl ing may decre ase, but will not elimi juventino, false negat gigi resul ts. A negat gigi resul t does not precl ude the prese nce and/o r devel opmen t of disea se, since the prese nce of abnor mal cells in the sampl e depen ds on the locat ion of the lesio n and sampl ing techn ique. Kayla nued regul ar scree ignacio is the best metho d of cance r preve ntion . If repor mark cytol ogic findi ng do not corre late with physi krishna and/o r histo rical findi ngs, furth er inves tigat ion is recom chapo d, as clini rosemary keenan nted. Not Available [facility] (Lab) [address], [place], [address], 05/30/2024 09:15:06 07/04/20 25 07/04/2025 IMAGE GUIDE D PAP AND HPV REGAR DLESS image guided Pap, HPV regardless of Pap result SEE RESULT S BELOW CASE REPOR T: Cytol ogy Gynec ologi krishna Repor t Case: [id number] Provi celina: Dalia Mendes, MARY Colle cted: 07/04 1038 Order ing Locat ion: [place] [facility] [place] Recei bree: 07/05 0101 First Scree n: Brandon Schultz am, CT Speci men: Screeaston asenciog Pap - Image d, Cervi x STATE MENT OF ADEQU ACY: Satis facto ry for evalu ation Trans forma tion zone compo nent prese nt ----- ----- ----- ----- ----- ----- ----- ----- ----- ----- ----- ----- ----- ----- ----- ----- ----- ---- FINAL DIAGN OSIS: Negat gigi for Intra epith elial Lesio n or Aidee brewer (NIL) . Elect nancy asher by Brandon Schultz am, CT on 2024 at 1236 CDT ----- ----- ----- ----- ----- ----- ----- ----- ----- ----- ----- ----- ----- ----- ----- ----- ----- ---- HPV RESUL TS: HPV mRNA E6/E7 : No HPV mRNA Detec mark NOTE: This high risk HPV mRNA assay detec ts fourt een high- risk HPV types (16, 18, 31, 33, 35, 39, 45, 51, 52, 56, 58, 59, 66, 68) witho ut diffe renti ation . COMME NT: This speci men was revie wed by a Cytot echno logis t and/o r Patho logis t (as indic ated in this repor t) after evalu ation using the Thinp rep Imagi ng Syste m. CLINI KRISHNA INFOR MATIO N: Menst rual Statu s: LMP (if appli cable ): Clini krishna Histo ry/Pr eviou s Pap: Type of Neopl alfonzo (if appli cable ): Signi fican t Clini krishna Findi ngs: Other Histo ry: Hormo carola (if appli cable ): PAP EDUCA LEIF L NOTE: The Pap Test is a scree ignacio test with an inher ent false negat gigi rate. Liqui d-bas ed sampl ing may decre ase, but will not elimi juventino, false negat gigi resul ts. A negat gigi resul t does not precl ude the prese nce and/o r devel opmen t of disea se, since the prese nce of abnor mal cells in the sampl e depen ds on the locat ion of the lesio n and sampl ing techn ique. Kayla nued regul ar scree ignacio is the best metho d of cance r preve ntion . If repor mark cytol ogic findi ng do not corre late with physi krishna and/o r histo rical findi ngs, furth er inves tigat ion is recom chapo d, as clini rosemary keenan nted. Not Available [facility] (Lab) [address], [place], [address], 07/09/2025 13:41:23 06/03/20 22 06/03/2022 MAMMO , scree ignacio, bilat eral No observ ation record ed. [email or web address] [address], [place], [address], 06/04/2022 17:47:33 07/10/20 25 07/09/2025 MAMMO , scree ignacio, digit al, bilat eral No observ ation record ed. [facility] [address], [place], [address], 07/17/2025 13:22:09 Result Notes None recorded. Problems Name Problem SNOMED Code Status Onset Date Resolution Date Notes Provider Name and Address Organization Details Recorded Time Speciali zed medical examinat ion Completed 201001/15/2021 Routine gynecolo gical examinat ion;Prac yane ID: 0001 Dafne cao, [facility] 17:05:49 Screenin g for malignan t neoplasm of cervix Completed 201001/15/2021 Pap Smear;Pr actice ID: 0001 Dafne cao, [facility] 17:05:44 Screenin g for malignan t neoplasm of rectum Completed 201001/15/2021 Screenin g for malignan t neoplasm s of the rectum;P ractice ID: 0001 Dafne cao, [facility] 17:05:46 Vaginiti s and vulvovag initis Completed 201201/15/2021 Vaginiti s and vulvovag initis, unspecif ied;Prac yane ID: 0001 Dafne cao, [facility] 17:05:50 Foreign body in vulva and vagina [id number] Completed 201201/15/2021 Foreign body in vulva and vagina;P ractice ID: 0001 Dafne cao [facility] 17:05:41 Adult health examinat ion Completed 201401/15/2021 ROUTINE MEDICAL EXAM;Rec orded Elsewher e: No Locat ion: [facility] S ource: [employer] Commanding Officer margot: N Practi ce ID: 0001 John lable Time: 03:30:00 PM Dafne cao [facility] 17:05:35 Finding of pattern of menstrua l cycle Completed 201501/15/2021 Excessiv e and frequent menstrua tion with irregula r cycle;Pr actice ID: 0001 Dafne cao [facility] 17:05:39 Pregnanc y test negative [id number] Completed 201501/15/2021 Encounte r for pregnanc y test, result negative ;Practic e ID: 0001 Dafne cao [facility] 17:05:[address] Concept Completed 201501/15/2021 Encntr for manager call exam (general ) (routine ) w/o abn findings ;Practic e ID: 0001 Dafne Lucas [facility] 17:05:48 Insertio n of intraute rine contrace ptive device Completed 201501/15/2021 Encounte r for insertio n of intraute rine contrace ptive device;P ractice ID: 0001 [facility] 17:05:42 Clinical finding Completed 201501/15/2021 Presence of (intraut erine) contrace ptive device;R ecorded Elsewher e: No Locat ion: [facility] S ource: [employer] Commanding Officer margot: N Practi ce ID: 0001 John lable Time: 02:00:00 PM Dafne Lucas [facility] 17:05:37 Contrace ptive sheath status [id number] Completed 201501/15/2021 Encounte r for routine checking of intraute rine contrace p dev;Prac yane ID: 0001 Dafne Lucas [facility] 17:05:[address] Concept Completed 201601/15/2021 Encntr for general adult medical exam w/o abnormal findings ;Recorde d Elsewher e: No [facility]at [facility] Practi ce ID: 0001 John lable Time: 01:30:00 PM Dafne Lucas [facility] 17:05:47 Problem Notes None recorded. Procedures Surgical History Date Name Laterality Status Provider Name and Address Organization Details Recorded Time 2 Date of Last Mammogram completed [facility] 07/04/2025 09:07:46 1 IUD Removal completed [facility] 01/21/2021 17:00:54 1 IUD Insertion completed [facility] 01/21/2021 17:00:36 1 Date of Last Pap Smear completed [facility] 07/04/2025 09:07:46 Imaging Results None recorded. Procedure Notes None recorded. Medical Equipment None Reported. Allergies No known drug allergies Medications Name Sig Start Date Stop Date Status Note LastModified by Organization Details LastModified Time amoxicill in 500 mg capsule TAKE 1 CAPSULE BY MOUTH THREE TIMES A DAY UNTIL FINISHED 03/16 completed Not Available Not Available Not Available Mirena 21 mcg/24 hr (up to 8 years) 52 mg intrauter ine device Take by intraute rine route. active Not Available Not Available No t Available Ponstel 250 mg capsule take 2 capsule by oral route once followed by 1 capsule (250 mg) every 6 hours as needed usually not to exceed 1 week 10/17 completed Prescrib ed Elsewher e: Yes Loca tion: [facility] odify By: tye he DateTime : 07/01/20 11 02:30:00 PM Not Available Not Available Not Available hydrocodo ne 5 mg-acetam inophen 325 mg tablet TAKE 1 TABLET BY MOUTH EVERY 4-6 HOURS NEEDED FOR PAIN 03/16 completed Not Available Not Available Not Available acetamino phen 300 mg-codein e 30 mg tablet TAKE 1 TABLET BY MOUTH FOUR TIMES A DAY NEEDED 05/23 completed Not Available Not Available Not Available amoxicill in 875 mg tablet TAKE 1 TABLET EVERY 12 HOURS DAILY 05/23 completed Not Available Not Available Not Available Metrogel Vaginal 0.75 % (37.5 mg/5 gram) insert 1 applicat orful (37.5MG) by vaginal route every day at bedtime 08/15 completed Prescrib ed Elsewher e: No Locat ion: [facility] odify By: carlie ferguson DateTime : 10/24/19 13 08:30:00 AM Not Available Not Available Not Available hydrochlo rothiazid e 12.5 mg capsule take 2 capsule by oral route every day 01/16 completed Prescrib ed Elsewher e: Yes Loca tion: [facility] odify By: kevin he DateTime : 07/01/20 11 02:30:00 PM Not Available Not Available Not Available omeprazol e 20 mg capsule,d elayed release TAKE 1 CAPSULE BY MOUTH EVERY DAY active Not Available Not Available No t Available hydrochlo rothiazid e 25 mg tablet TAKE 1 TABLET (25 MG TOTAL) BY MOUTH DAILY. active Not Available Not Available No t Available methylpre dnisolone 4 mg tablets in a dose pack TAKE 6 TABLETS ON DAY 1 DIRECTED ON PACKAGE AND DECREASE BY 1 TAB EACH DAY FOR A TOTAL OF 6 DAYS 05/23 completed Not Available Not Available Not Available azithromy quita 500 mg tablet TAKE 1 TABLET BY MOUTH EVERY DAY 05/23 completed Not Available Not Available Not Available Vitamin D3 25 mcg (1,000 unit) capsule 01/16 completed Prescrib ed Elsewher e: Yes Loca tion: [facility] odify By: tye campbellunter DateTime : 10/17/19 16 04:00:00 PM Not Available Not Available Not Available Wal-Zyr (cetirizi ne) 10 mg tablet active Not Available Not Available Not Available Zyrtec 10 mg capsule 01/21 completed Prescrib ed Elsewher e: Yes Loca tion: [facility] odify By: kevin dobbinser DateTime : 07/01/20 11 02:30:00 PM Not Available Not Available Not Available Lo Loestrin Fe 1 mg-10 mcg (24)/10 mcg (2) tablet take 1 tablet by oral route every day 03/18 completed Prescrib ed Elsewher e: No Locat ion: [facility] odify By: leonard dobbinser DateTime : 10/22/19 16 09:00:00 AM Not Available Not Available Not Available Vitals Date Recorded Body height Body mass index (BMI) Body weight Systolic And Diastolic Provider Name and Address Organization Details Last Updated DateTime 01/21/2021 167.64 cm 38.7 kg/m2 643591.17 g 120/80 mm[Hg] Dafne Lucas [facility] 01/21/2021 16:30:30 Date Recorded Body height Body mass index (BMI) Body weight Systolic And Diastolic Provider Name and Address Organization Details Last Updated DateTime 02/18/2021 167.64 cm 38.6 kg/m2 700992.58 g 106/65 mm[Hg] Dafne Lucas [facility] 02/18/2021 16:39:26 Date Recorded Body height Body mass index (BMI) Body weight Systolic And Diastolic Provider Name and Address Organization Details Last Updated DateTime 03/16/2022 167.64 cm 41.8 kg/m2 944035.71 g 158/87 mm[Hg] Ashly Wilson [facility] 03/16/2022 16:18:33 Date Recorded Body height Body mass index (BMI) Body weight Systolic And Diastolic Provider Name and Address Organization Details Last Updated DateTime 05/23/2024 167.64 cm 37.6 kg/m2 584898.02 g 112/73 mm[Hg] Nancy Watts [facility] 05/23/2024 16:31:36 Date Recorded Body height Body mass index (BMI) Body weight Systolic And Diastolic Provider Name and Address Organization Details Last Updated DateTime 07/04/2025 167.64 cm 35 kg/m2 45118.54 g 118/74 mm[Hg] Emmy St [facility] 07/04/2025 09:07:25 Social History Question Answer Notes LastModified by Organizat ion Details LastModified Time Tobacco Smoking Status Never Smoker Ashly Wilson [facility] 03/16/2022 16:18:53 Do You Have An Advance Directive? No Information n ot available 01/21/2021 How Many Years Have You Consumed Alcohol? 35 [email or web address] Information not available 01/21/2021 Are You Blind Or Do You Have Difficulty Seeing? No [email or web address] Information n ot available 01/21/2021 What Is Your Level Of Caffeine Consumption? Moderate [email or web address] Information not available 01/21/2021 How Much Tobacco Do You Chew? None [email or web address] Information not available 01/21/2021 In The 14 Days Before Symptom Onset, Have You Had Close Contact With A Laboratory-confirm ed COVID-19 While That Case Was Ill? No Information n ot available 01/21/2021 In The 14 Days Before Symptom Onset, Have You Had Close Contact With A Person Who Is Under Investigation For COVID-19 While That Person Was Ill? No Information not available 01/21/2021 Have You Been To An Area Known To Be High Risk For COVID-19? No [email or web address] Information not available 01/21/2021 Are You Deaf Or Do You Have Serious Difficulty Hearing? No [email or web address] Information not available 01/21/2021 What Type Of Diet Are You Following? REGULAR [email or web address] Information n ot available 01/21/2021 What Is The Highest Grade Or Level Of School You Have Completed Or The Highest Degree You Have Received? [id number] Information not available 01/21/2021 Are There Any Guns Present In Your Home? No Information not available 01/21/2021 Do You Use Protection During Sex? Always [email or web address] Information not available 01/21/2021 Do You Use Your Seat Belt Or Car Seat Routinely? Yes [email or web address] Information not available 01/21/2021 Do You Have Smoke And Carbon Monoxide Detectors In Your Home? Yes [email or web address] Information not available 01/21/2021 How Much Tobacco Do You Smoke? No [email or web address] Information not available 01/21/2021 Do You Use Sunscreen Routinely? Yes [email or web address] Information not available 01/21/2021 Have You Used IV Drugs? No Information not available 01/21/2021 Do You Have Difficulty Walking Or Climbing Stairs? No Information not available 03/16/2022 Sex: Unknown Functional Status Question Answer Note LastModified by Organizat ion Details LastModified Time Do you use any illicit or recreational drugs? Yes Information not available 03/16/2022 What is your level of alcohol consumption? Occasional [email or web address] Information not available 01/21/2021 Are you able to walk independently without assistance or assistive devices? YESWOREST [email or web address] Information not available 01/21/2021 Are you able to care for yourself independently? 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 No Information not available 03/16/2022 What is your exercise level? Moderate [email or web address] Information not available 07/04/2025 Mental Status Question Answer Note LastModified by Organization D etails LastModified Time Do you feel stressed (tense, restless, nervous, or anxious, or unable to sleep at night)? [id number] [email or web address] Information not available 01/21/2021 Family History Relationship Description Onset Age of this Age Resolved Age Notes LastModified by Organization Details LastModified Time Paternal Grandmother Diabetes mellitus [email or web address] Not available 2020 16:38:22 Paternal Grandmother Malignant neoplasm of breast Not available 2020 16:38:34 Medical History Condition Response Allergies (Food, seasonal, environmental ) N Other N Breast Cancer N Drug/Latex Allergies/Reactions N Blood Transfusion N Dermatologic Disorders N Lung Disease N Defects or Inherited Disease N Breast Problem N Gestational Diabetes N Hematologic disorders N Anesthesia Complications N History of STI N Deep Vein Thrombosis N Polycystic ovary syndrome N Anxiety Disorder N Autoimmune disease N Arthritis N Infertility N Polyps N Acid Reflux (GERD) N History of abnormal pap N Cancer N Stroke N Varicosities N Neurologic/Epilepsy N Endometriosis N High Cholesterol N Headaches N Fibromyalgia N Kidney Disease N Heart Problems N Kidney or Bladder Problems N Thyroid Problems N GI Problems N Eating Disorder N Anemia N Art (IVF or FET) N Psychiatric Illness N Ovarian Cancer N Diabetes N Pulmonary (TB, Asthma) N Hepatitis/Liver Disease N No Past Medical History N Eczema N Urinary Tract Infection N Abuse/Domestic Violence N Asthma N Trauma/Violence N Depression/ depression N Heart Disease N Pre-Eclampsia N Hypertension N Osteoporosis N Thrombophilias N Gynecological History Statement/Question Response Abnormal Pap N Date of Last Mammogram 12/01/2021 On BCP's at Conception? N Was last menstrual period normal Y STIs/STDs N HPV Vaccine N Colposcopy Current Control Method IUD Age at First Child 32 Date of Last Colonoscopy Sexually Active? Y IUD Menses Monthly N Date of DEXA bone scan Age of first menstrual cycle 15 Date of Last Pap Smear 01/16/2021 Sexual Problems? N Desired Control Method IUD LMP Unknown N Obstetrics History GPAL:G 4 P 2 0 2 2 Type Value Full Term 2 Induced 1 Spontaneous 1 Living 2 Total 4 Past Encounters Encounter ID Performer Location Encounter Start Date Encounter Closed Date Diagnosis/Indication Diagnosis SNOMED-CT Code Diagnosis ICD10 Code Diagnosis IMO Codes Diagnosis Note [id number] Ann Meeks CNM [facility] [address] [address] 01/16/2021 16:22:33 01/16/2021 17:23:10 Gynecologic examination 17005793 Z01.419 Take Calcium with Vitamin D 12-1500mg daily. Do monthly self breast exams. It is advised to get annual flu shot in the fall and she could obtain at [facility] or [facility] care clinic. If you haven't received the Tdap vaccine in the last 10 years you should obtain one as well. Have mammogram yearly, bone density every 2-3 years and colonoscop y every 5-10 years depending on findings and history. Engage in daily exercise of low impact aerobic exercise 45-60 minutes 4-5 times weekly. Avoid tobacco and illicit drugs as well as using moderation with alcohol intake less than 1-2 8 oz beverages daily. This lifestyle behavior pattern will lead to less health conditions and longer life span. If BMI greater than 25 weight watchers or dietary consult advised. Questions have been answered. Patient appears to understand instructio ns, but if you have any further questions call or respond to this email. [id number] Ann Meeks CNM [facility] [address],[place] [address] 01/21/2021 16:22:47 01/21/2021 17:06:31 Removal of intrauterine device [id number] Z30.432 Insertion of intrauterine contraceptive device 30906684 Z30.430 RTC in 1 month. Sooner if any problems or concerns. [id number] Ann Meeks CNM [facility] [address],[place] [address] 02/18/2021 16:31:40 02/18/2021 16:56:00 Intrauterine device check [id number] Z30.431 Doing well. No problems. RTC for annual exam or sooner if any problems/c oncerns. [id number] BREA Rm [facility] [address],[place] [address] 03/16/2022 16:07:34 03/18/2022 17:21:47 Gynecologic examination 20361669 Z01.419 Take Calcium with Vitamin D 12-1500mg daily. Do monthly self breast exams. It is advised to get annual flu shot in the fall and she could obtain at [facility] or [facility] care clinic. If you haven't received the Tdap vaccine in the last 10 years you should obtain one as well. Have mammogram yearly, bone density every 2-3 years and colonoscop y every 5-10 years depending on findings and history. Engage in daily exercise of low impact aerobic exercise 45-60 minutes 4-5 times weekly. Avoid tobacco and illicit drugs as well as using moderation with alcohol intake less than 1-2 8 oz beverages daily. This lifestyle behavior pattern will lead to less health conditions and longer life span. If BMI greater than 25 weight watchers or dietary consult advised. Questions have been answered. Patient appears to understand instructio ns, but if you have any further questions call or respond to this email WWENo hx of abnormal papsLast pap 2020Mirena IUD for control, happy with this. Inserted on 01/21/2021 , partner also has vasectomyM ammogram order given to patientUTD with colonoscop y through PCPUTD with routine labs with PCPBP today 158/87, patient to f/u with PCP on BP. Red flag symptoms discussedR TC in 1 year for WWE or sooner if needed Screening for malignant neoplasm of breast 302513912 Z12.39 Melanocyti c nevus of skin [id number] D22.9 [id number] Dalia Mendes MARY [facility] [address],[facility] [place] [address] 05/23/2024 16:25:43 05/23/2024 18:16:51 Gynecologic examination [id number] Z01.419 WWEpap updateddec lined STI screenMire na IUD, inserted 01/21/2021m ammogram order givencolon oscopy - she is unsure when due, she will f/u with PCP Do monthly self breast exams.It is advised to get annual flu shot in the fall which she can obtain at local pharmacy. If you haven't received the Tdap vaccine in the last 10 years you should obtain one as well.Have mammogram yearly, bone density every 2-3 years and stay up to date on colon cancer screening. Engage in regular exercise. Avoid tobacco and illicit drugs. This lifestyle behavior pattern will lead to less health conditions and longer life span. If BMI greater than 25 dietary consult advised.Qu estions have been answered. Screening for malignant neoplasm of breast [id number] Z12.39 [id number] BREA Rm [facility] [address] [address] 07/04/2025 08:55:15 07/04/2025 10:54:47 Gynecologic examination 49995218 Z01.083 [id number] WWEPap - done todaySTI screen - declinedMa mmogram - order givenColon cancer screening - UTD/PCPDex a - n/aRoutine labs - PCPRTC in 1 yr or sooner if needed Do monthly self breast exams.It is advised to get annual flu shot in the fall and she could obtain at local pharmacy. If you haven't received the Tdap vaccine in the last 10 years you should obtain one as well.Have mammogram yearly, bone density every 2-3 years and stay up to date on colon cancer screening. Engage in regular exercise. Avoid tobacco and illicit drugs. This lifestyle behavior pattern will lead to less health conditions and longer life span. If BMI greater than 25 dietary consult advised.Qu estions have been answered. Screening mammography 24 457793 Z12.31 [id number] [facility] care management 457123677 Z30.9 [id number] opts to continue Mirena , r/b/a reviewedwi ll 01/21/2029 Health Concerns Section Related Observation LastModified by Organization Detai ls LastModified Time None Recorded Concern Status LastModified by Organization Details LastModified Time None Recorded Advance Directives Directive N: Payers Insurance Date Sequence Insurance Name Policy Number Policy Perdomo Covered Member ID Perdomo Member ID Guarantor Name 07/03/2025 1 [facility] [id number] Juju Jean [id number] Juju Jean 05/23/2024 1 [employer] [id number] Juju Jean [id number] Juju Jean Notes Date Note Type Note Provider Name and Address Organization Details Recorded Time 01/22/20 21 text/ht ml Patient presents for IUD removal and insertion. She states she has abstained for more than 2 weeks. HCG negative. She is aware of the risks if she has not been truthful aboutabsitnence. She has been counseled on all of the r/b/a of placement of an intrauterine device that include but are not limited to uterine perforation, injury to cervix, vagina, bladder, and bowel.Risks of bleeding due to injury or increased irregular bleeding due toprogestineffect of the device. Risks of infection would be increased within the first 21 days of placement withcervicitis. She understands that the device will need to be removed in this instance due to increased risk of Pelvic inflammatory disease. Patient is aware she is at higher risk for STD and if contracted she could lose her fertility. Pt is aware that if occurs that she should contact office immediately to rule outectopicpregnancy which could be life threatening. IUD will also need to be removed and this could cause miscarriage. Patient also informed that in the event her strings are absent or embedded at the time of removal she may need to have the IUD surgically removed. She was informed of the above and properly consented. Ann cao [facility] 01/21/2021 17:03:01 02/19/20 21 text/ht ml Patient presents for IUD follow up. No problems. Spotting only a few days after insertion. Ann cao [facility] 02/18/2021 16:48:01 03/16/20 22 text/ht ml Annual GYNReported by PatientGenitourinary symptomsFor menstrual cycle, patient reportsnormal menses. For urinary symptoms, patient reportsno hematuriaandno incontinence. For vulva, patient reportsno genital lesion. For vagina, patient reportsnormal vaginal discharge.Breast symptomsFor breast, patient reportsno breast pain,no breast lump, andno nipple discharge.ContraceptionFor current contraception, patient reportsintrauterine device (iud).Endocrine symptomsFor sexual complaints, patient reportsno sexual complaints,no pain during intercourse, andnormal libido. For menopausal symptoms, patient reportsno menopausal symptomsandnormal vaginal lubrication.Psychological symptomsFor psychological symptoms, patient reportsno depression,no anxiety, andno pmdd.Preventative measuresFor preventive measures, patient reportsencourage self breast examination,encourage regular exercise,encourage no tobacco use, andencourage regular mammograms starting age 40. BREA Rm [address], [place], [address], [facility] 03/18/2022 09:08:25 05/23/20 24 text/ht ml Annual GYNReported by PatientGenitourinary symptomsFor urinary symptoms, patient reportsno hematuriaandno incontinence. For vulva, patient reportsno genital lesion. For vagina, patient reportsnormal vaginal discharge. For menstrual cycle, (no periods with iud).Breast symptomsFor breast, patient reportsno breast pain,no breast lump, andno nipple discharge.Endocrine symptomsFor sexual complaints, patient reportsno sexual complaints,no pain during intercourse, andnormal libido. For menopausal symptoms, patient reportsno menopausal symptomsandnormal vaginal lubrication.Psychological symptomsFor psychological symptoms, patient reportsno depression,no anxiety, andno pmdd.Preventative measuresFor preventive measures, patient reportsencourage self breast examination,encourage regular exercise,encourage no tobacco use, andencourage regular mammograms starting age 40.58yo WWEmirena IUD, inserted 01/21/2021 (will 01/21/2029)last pap 2020 : nilm, HPV (-) BREA Rm [address], [place], [address], [facility] 05/23/2024 17:26:18 07/04/20 25 text/ht ml Annual GYNReported by PatientGenitourinary symptomsFor urinary symptoms, patient reportsno hematuriaandno incontinence. For vulva, patient reportsno genital lesion. For vagina, patient reportsnormal vaginal discharge.Breast symptomsFor breast, patient reportsno breast pain,no breast lump, andno nipple discharge.ContraceptionFor current contraception, patient reportssatisfied with current contraceptionandintrauterine device (iud).Endocrine symptomsFor sexual complaints, patient reportsno sexual complaints,no pain during intercourse, andnormal libido. For menopausal symptoms, patient reportsno menopausal symptomsandnormal vaginal lubrication.Psychological symptomsFor psychological symptoms, patient reportsno depression,no anxiety, andno pmdd.Preventative measuresFor preventive measures, patient reportsencourage self breast examination,encourage regular exercise,encourage no tobacco use, andencourage regular mammograms starting age 40.58yo WWEmirena IUD, inserted 01/21/2021 (will 01/21/2029)last pap 2023 : nilm, HPV (-)mammogram last olonoscopy UTD/PCP BREA Rm [address], [place], [address], [facility] 07/04/2025 10:51:45 OBGyn Episode Ob Episode Information Episode Created Date Number of Fetuses Patient Bloodtype Patient rh Status Prepregnancy Weight lbs Domestic Partner Domestic Partner Phone Father Name Hr Director Status 01/17/20 21 1 CLOSED Fetus Data First Name Last Name Admitted to NICU Weight (g) Sex Living Outcome Pediatric Complications Fetus ID Race Codes Race Delivery Type 4195.72 6 Full Term [id number] Vaginal Delivery Ayaz Calculation Initial Ayaz Date Initial Exam Date Initial Exam Provider Initial Ultrasound Date Last Menstrual Period Date Ultra Sound Weeks Gestation 0 Eighteen To Twenty Week Ayaz Update Ultra Sound Date Fundal Height At Umbil Quickening Date Ultra Sound Latest Weeks Gestation Final Ayaz Confirmed By Final Ayaz Confirmed Date Final Ayaz Date Ultra Sound Latest Days Gestation 0 0 Menstrual History Last Menstrual Date Menses Monthly On Bcp Conception Prior Menses Frequency Hcg Plus Date Menarche Onset Age Delivery Information Delivery Date Delivery Type Labor Anesthesia Weeks Gestation Incision Type Labor Labor Length Hrs Delivered By Post Complications Tubal Sterilization Discharge Date Comments 8 40 Discharge Information Feeding Method Contraceptive Method Maternal HG B and HCT Levels Ob Episode Information Episode Created Date Number of Fetuses Patient Bloodtype Patient rh Status Prepregnancy Weight lbs Domestic Partner Domestic Partner Phone Father Name Hr Director Status 01/17/20 21 1 CLOSED Fetus Data First Name Last Name Admitted to NICU Weight (g) Sex Living Outcome Pediatric Complications Fetus ID Race Codes Race Delivery Type 3515.33 8 F Full Term [id number] Vaginal Delivery Ayaz Calculation Initial Ayaz Date Initial Exam Date Initial Exam Provider Initial Ultrasound Date Last Menstrual Period Date Ultra Sound Weeks Gestation 0 Eighteen To Twenty Week Ayaz Update Ultra Sound Date Fundal Height At Umbil Quickening Date Ultra Sound Latest Weeks Gestation Final Ayaz Confirmed By Final Ayaz Confirmed Date Final Ayaz Date Ultra Sound Latest Days Gestation 0 0 Menstrual History Last Menstrual Date Menses Monthly On Bcp Conception Prior Menses Frequency Hcg Plus Date Menarche Onset Age Delivery Information Delivery Date Delivery Type Labor Anesthesia Weeks Gestation Incision Type Labor Labor Length Hrs Delivered By Post Complications Tubal Sterilization Discharge Date Comments 2 Discharge Information Feeding Method Contraceptive Method Maternal HG B and HCT Levels
[2025-07-29 09:48] VITALS: BP 134/99; PULSE 89; RESP 17; TEMP 36.3; O2SAT 100
--- NOTE | 2025-07-29 09:58 | PC.NURSE ---
ring removed from right ring finger in triage.
--- OUTSIDE RECORDS SUMMARY | 2025-07-29 11:08 | XMS_ITS | Clinical Summary ---
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
--- OUTSIDE RECORDS SUMMARY | 2025-07-29 11:08 | XMS_ITS | Clinical Summary ---
Author Organization [facility] Address [address] [place] [address] Care Team Providers Care Asphalt Raker Name Role Phone Ashly Riggins Primary Care Provider [phone] Allergies No known active allergies Medications Cholecalcifero [...] Type Department Care Team Description 07/19/2025 Telephone [facility] [address] [address] Ashly Riggins APNP Radiology Results (Mammogram) 07/11/2025 7:20 AM CDT Laboratory Only [facility] Internal [address] [address] Ashly Riggins APNP 07/11/2025 - 07/11/2025 11:59 PM CDT Hospital Encounter [facility] [address] [place] [address] Ashly Riggins APNP Discharge Disposition: Home or Self Care (Routine Discharge) 07/11/2025 Travel 07/09/2025 Scan [facility] SRVCS Scanned, [facility] Mammogram (SCAN) 07/05/2025 Results Follow-Up [facility] Internal [address] [address] Ashly Riggins APNP XR HAND RT 3V, XR HAND LT 3V, C-REACTIVE PROTEIN, Additional followed-up results: 9 07/04/2025 10:00 AM CDT Office Visit [address] [address] Ashly Riggins APNP Physical; Finger pain (Pt [...] Zoster Vaccines Completed 11/29/2023, 08/24/2023 PHQ-2 (Physician [place]) Completed 07/04/2025 Pneumococcal Vaccine: 50+ Years Completed [...] TO HCV RNA Routine 11/20/2022 7:33 AM FARM LOAN REPRESENTATIVE Need for hepatitis C screening test from Last 3 Months or Most Recently Relevant to Health Maintenance Results * (ABNORMAL) URINALYSIS (07/11/2025 7:30 AM CDT) COLOR (U) YELLOW 07/11/2025 4:34 PM CDT [facility] TRANSPARENCY HAZY(A) CLEAR 07/11/2025 4:34 PM CDT [facility] SPECIFIC GRAVITY (U) 1.020 1.003 - 1.040 07/11/2025 4:34 PM CDT [facility] U PH 6.5 5.0 - 9.0 07/11/2025 4:34 PM CDT [facility] PROTEIN RANDOM (U) TRACE(A) NEGATIVE 07/11/2025 4:34 PM CDT [facility] GLUCOSE (U) NEGATIVE NEGATIVE 07/11/2025 4:34 PM CDT [facility] KETONES MG/DL (U) NEGATIVE NEGATIVE 07/11/2025 4:34 PM CDT [facility] BILIRUBIN (U) NEGATIVE NEGATIVE 07/11/2025 4:34 PM CDT [facility] BLOOD (U) TRACE(A) NEGATIVE 07/11/2025 4:34 PM CDT [facility] UROBILINOGEN 1.0 0.0 - 2.0 EU/DL 07/11/2025 4:34 PM CDT [facility] NITRITES NEGATIVE NEGATIVE 07/11/2025 4:34 PM CDT [facility] LEUKOCYTES (U) TRACE(A) NEGATIVE 07/11/2025 4:34 PM CDT [facility] RBC/HPF 0-3 0 - 3 /HPF 07/11/2025 4:34 PM CDT [facility] WBC/HPF 0-3 0 - 3 /HPF 07/11/2025 4:34 PM CDT [facility] EPI/HPF 4-9 /HPF 07/11/2025 4:34 PM CDT [facility] BACTERIA (U) TRACE(A) NONE SEEN 07/11/2025 4:34 PM CDT [facility] COMMENT (U) Less than 12 ml urine submitted. 07/11/2025 4:34 PM CDT [facility] AMORPHOUS SEDIMENT PRESENT 07/11/2025 4:34 PM CDT [facility] URINE SPECIMEN OBTAINED BY CLEAN CATCH PROCEDURE / Unknown 07/11/2025 7:30 AM CDT us Ashly BAUTISTA URINE ORDERABLES Final Resu lt [facility] [address] [place] [address], * TSH W/REFLEX (07/11/2025 7:26 AM CDT) TSH 1.619 0.358 - 3.740 uIU/ML 07/11/2025 3:40 PM CDT [facility] 07/11/2025 7:26 AM CDT [facility] Final Resul t [facility] [address] [place] [address], * RHEUMATOID FACTOR, QUANT (07/11/2025 7:26 AM CDT) RHEUMATOID FACTOR <10 <15 IU/ML 07/11/2025 5:55 PM CDT [facility] 07/11/2025 7:26 AM CDT Ashly [facility] Final Resul t Performing Organization Address [facility] Co de Phone Number [facility] [address] [place] [address], [place] [phone] * CYCLIC CITRULLINATED PEPTIDE (CCP)ANTIBODY(IGG) (07/11/2025 7:26 AM CDT) CITRULLINE PEPTIDE ANTIBODY <16 UNITS [employer] [facility] Comment: Reference Range Negative: <20 Weak Positive: 20-39 Moderate Positive: 40-59 Strong Positive: >59 07/11/2025 7:26 AM CDT 07/12/2025 4:22 AM CDT Narrative Resulting Agency Comment Performing Organization Information: Site ID: [place] Name: [facility] Address: [address] [place] [address] Director: Masoud Menjivar MD Ashly [facility] Final Resul t Performing Organization Address City/[facility]/ZIP Co de Phone Number [facility] [employer] [facility] [address] [place] [address], * (ABNORMAL) COMPREHENSIVE METABOLIC PANEL (07/11/2025 7:26 AM CDT) [facility] SODIUM S/P/B 145 136 - 145 MMOL/L 07/11/2025 4:15 PM CDT -[facility] POTASSIUM S/P/B 3.8 3.5 - 5.1 MMOL/L 07/11/2025 4:15 PM CDT -[facility] CHLORIDE S/P/B 105 98 - 107 MMOL/L 07/11/2025 4:15 PM CDT [facility] CO2 30.7 21 - 32 MMOL/L 07/11/2025 4:15 PM CDT [facility] GLUCOSE 93 70 - 99 MG/DL 07/11/2025 3:40 PM CDT [facility] BUN 14 7 - 18 MG/DL 07/11/2025 3:40 PM CDT [facility] CREATININE S/P/B 0.62 0.55 - 1.02 MG/DL 07/11/2025 3:40 PM CDT [facility] CALCIUM S/P/B 9.1 8.4 - 10.5 MG/DL 07/11/2025 3:40 PM CDT [facility] BILIRUBIN TOTAL S/P/B 1.2(H) 0.2 - 1.0 MG/DL 07/11/2025 3:40 PM CDT [facility] ALKALINE PHOSPHATASE S/P/B 60 46 - 118 U/L 07/11/2025 3:40 PM CDT [facility] AST 15 15 - 37 U/L 07/11/2025 3:40 PM CDT [facility] ALT 20 14 - 59 U/L 07/11/2025 3:40 PM CDT [facility] TOTAL PROTEIN S/P/B 6.9 6.4 - 8.2 G/DL 07/11/2025 3:40 PM CDT [facility] ALBUMIN S/P/B 4.0 3.4 - 5.0 G/DL 07/11/2025 3:40 PM CDT [facility] ANION GAP 9.3 5 - 15 MMOL/L 07/11/2025 4:15 PM CDT [facility] Comment:REFERENCE RANGE NOT ESTABLISHED OSMOLALITY (CALC) 300 MOSM/KG 025 4:15 PM CDT [facility] Comment:REFERENCE RANGE NOT ESTABLISHED GFR ESTIMATE >90 >90 ML/MIN/1. 73 M2 07/11/2025 3:40 PM CDT [facility] GFR NOTES GFR REFERENCE S: 07/11/2025 3:40 PM CDT [facility] Comment: THE ESTIMATED GFR IS CALCULATED USING [...] CDT Ashly [facility] Final Resul t [facility] [address] [place] [address], * (ABNORMAL) LIPID PANEL (07/11/2025 7:26 AM CDT) CHOLESTEROL 197 <200 MG/DL 07/11/2025 3:40 PM CDT [facility] TRIGLYCERIDES 64 <150 MG/DL 07/11/2025 3:40 PM CDT [facility] HDL 56 >40 MG/DL 07/11/2025 3:40 PM CDT [facility] LDL-C 128(H) <100 MG/DL 07/11/2025 3:40 PM CDT [facility] VLDL CALCULATION 13 5 - 28 MG/DL 07/11/2025 3:40 PM CDT [facility] CHOL/HDL RATIO 3.5 0.0 - 4.0 07/11/2025 3:40 PM CDT [facility] LDL/HDL 2.3(H) 0.41 - 2.13 07/11/2025 3:40 PM CDT [facility] NON HDL CHOLESTEROL 141(H) <140 MG/DL 07/11/2025 3:40 PM CDT [facility] 07/11/2025 7:26 AM CDT Ashly [facility] Final Resul t Performing Organization Address City/[facility]/ZIP Co de Phone Number [address] [address], * C-REACTIVE PROTEIN (07/11/2025 7:26 AM CDT) C-REACTIVE PROTEIN 0.27 <0.30 mg/dL 07/11/2025 3:40 PM CDT [facility] 07/11/2025 7:26 AM CDT Ashly [facility] Final Resul t Performing Organization Address City/[facility]/ZIP Co de Phone Number [address] [address], [place] [phone] * CBC W/DIFF AUTOMATED (07/11/2025 7:26 AM CDT) WBC 5.48 4.00 - 10.80 x10'3/uL 07/11/2025 3:38 PM CDT [facility] RBC 4.49 4.10 - 5.40 x10'6/uL 07/11/2025 3:38 PM CDT [facility] HGB 12.9 12.0 - 16.0 G/DL 07/11/2025 3:38 PM CDT [facility] HCT 38.9 36.0 - 47.0 % 07/11/2025 3:38 PM CDT [facility] MCV 86.6 78.0 - 100.0 FL 07/11/2025 3:38 PM CDT [facility] MCH 28.7 27.0 - 31.0 PG 07/11/2025 3:38 PM CDT [facility] MCHC 33.2 33.0 - 36.0 G/DL 07/11/2025 3:38 PM CDT [facility] RDW 12.8 11.5 - 14.5 % 07/11/2025 3:38 PM CDT [facility] PLT 295 150 - 350 x10'3/uL 07/11/2025 3:38 PM CDT [facility] MPV 10.4 7.4 - 10.4 FL 07/11/2025 3:38 PM CDT [facility] DIFFERENTIAL TYPE AUTOMATED DIFFERENTIAL 07/11/2025 3:38 PM CDT [facility] NEUTROPHILS % 55.6 % 07/11/2025 3:38 PM CDT [facility] LYMPHOCYTES % 29.6 % 07/11/2025 3:38 PM CDT [facility] MONOCYTES % 8.0 % 07/11/2025 3:38 PM CDT [facility] EOSINOPHILS % 5.5 % 07/11/2025 3:38 PM CDT [facility] BASOPHILS % 0.9 % 07/11/2025 3:38 PM CDT [facility] IMMATURE GRANS % 0.4 % 07/11/2025 3:38 PM CDT [facility] ABS. NEUTROPHILS 3.05 1.60 - 8.30 x10'3/uL 07/11/2025 3:38 PM CDT [facility] ABS. LYMPHOCYTES 1.62 0.80 - 4.70 x10'3/uL 07/11/2025 3:38 PM CDT [facility] ABS. MONOCYTES 0.44 0.00 - 1.50 x10'3/uL 07/11/2025 3:38 PM CDT [facility] ABS. EOSINOPHILS 0.30 0.00 - 0.40 x10'3/uL 07/11/2025 3:38 PM CDT [facility] ABS. BASOPHILS 0.05 0.00 - 0.20 x10'3/uL 07/11/2025 3:38 PM CDT [facility] ABS. IMMATURE GRANULOCYTES 0.02 0.00 - 0.03 x10'3/uL 07/11/2025 3:38 PM CDT [facility] 07/11/2025 7:26 AM CDT us Ashly [facility] Final Resul t [facility] [address] [place] [address], * VITAMIN D, 25 [place] (07/11/2025 7:26 AM CDT) Pathologist [facility] VITAMIN D 25 HYDROXY TOTAL S/P/B 72.1 30 - 100 NG/ML 07/11/2025 3:40 PM CDT [facility] Comment: DEFICIENT <20 INSUFFICIENT 20-30 SUFFICIENT 30-100 07/11/2025 7:26 AM CDT Ashly Yuri Vaishnavi [facility] Final Resul t Performing Organization Address City/[facility]/ZIP Co de Phone Number [facility] [address] [place] [address], * URIC ACID BLOOD (07/11/2025 7:26 AM CDT) URIC ACID 3.9 2.6 - 6.0 MG/DL 07/11/2025 4:27 PM CDT [facility] 07/11/2025 7:26 AM CDT Ashly Yuri aVishnavi [facility] Final Resul t Performing Organization Address [facility] Co de Phone Number [address] [address], * MAMMOGRAM GENERIC (SCAN ORDER) (07/09/2025) Anatomical [...] 3:55 PM Narrative 07/04/2025 4:29 PM CDT [facility] [address] [address] XR HAND RT 3V, XR HAND LT [...] Procedure Note Aldo Galicia MD - 07/04/2025 [facility] - [address] [address] XR HAND RT 3V, XR HAND LT [...] 3:55 PM Narrative 07/04/2025 4:29 PM CDT [facility] [place] [address] XR HAND RT 3V, XR HAND LT [...] Procedure Note Aldo Galicia MD - 07/04/2025 [facility] [place] [address] XR HAND RT 3V, XR HAND LT [...] HCV RNA ([facility] ONLY) (11/20/2022 7:33 AM FARM LOAN REPRESENTATIVE) HEPATITIS C AB NON-REACT ADIEL NON-REACT ADIEL [facility] SIGNAL TO CUTOFF <0.02 <1.00 [facility] Comment: HCV antibody was non-reactive. There is no laboratory evidence of HCV infection. In most cases, no further action is required. However, if recent HCV exposure is suspected, a test for HCV RNA (test code 40602) is suggested. For additional information please refer to http://education.[employer]/faq/TAW44w8 (This link is being provided for informational/ educational purposes only.) 11/20/2022 7:33 AM FARM LOAN REPRESENTATIVE 11/21/2022 4:16 AM FARM LOAN REPRESENTATIVE Narrative Resulting Agency Comment Performing Organization Information: Site ID: [id number] Name: Lu Jimenez Address: [address] [place] [address] Director: Masoud Menjivar MD us Ashly [facility] Final Resul t LU FIERRO [employer] [facility] [address] [place], [place] [address] from Last 3 Months or Most Recently Relevant to Health Maintenance Insurance Care Teams Asphalt Raker Relationship Specialty Start Date End Date Ashly Riggins APNP [address] [place] [address] PCP - General NURSE PRACTITIONER 11/08/18
--- NOTE | 2025-07-29 11:46 | ED_ITS ---
HPI - General Adult General Chief complaint: Fall Stated complaint: fall Time Seen by Provider: 07/29/25 10:51 History of Present Illness HPI narrative: 59-year-old female present to the emergency department for evaluation for right hand injury and lower back injury. Patient reports she was helping carry TV when her right foot caught and she stumbled and she twisted her back and fell to the ground and the TV landed on her right hand. Patient denies any suspected pain or injury from the fall but states she did feel it she tweaked her back even before she landed on the ground. Patient denies any numbness or weakness of the lower extremities. Patient denies any head denies any loss of consciousness. Patient does complain left-sided paraspinal muscular pain with movement and does have lacerations to the right hand. Patient did have a ring on the right hand and this was removed. Related Data Allergies Allergy/AdvReac Type Severity Reaction Status Date / Time No Known Allergies Allergy Verified 07/29/25 09:46 Review of Systems Review of Systems: All systems reviewed & are unremarkable except as noted in HPI and below Exam Narrative: APPEARANCE: Well appearing, no pain, no distress, well-nourished. HEAD: normocephalic, atraumatic. EYES: PERRLA/EOMI, conjunctivae clear. NOSE: Normal no drainage EARS:TMS clear with good light reflex. THROAT: Pharynx clear, no exudate. NECK: Supple. No adenopathy, no masses. RESPIRATORY: Airway patent, respirations nonlabored. Clear to auscultation bilaterally, no rales, rhonchi, wheezing. CARDIOVASCULAR: Regular rate and rhythm without murmurs rubs or gallops. ABDOMINAL: Soft, nontender, nondistended, normal bowel sounds MUSCULOSKELETAL: Moves all extremities. Strength/ROM intact, No edema, No calf tenderness. NEURO: Alert. Cranial nerves II through XII intact. Grossly intact Course Vital Signs Vital signs: Vital Signs Temperature 97.4 F L 07/29/25 09:48 Pulse Rate 89 07/29/25 09:48 Respiratory Rate 17 07/29/25 09:48 Blood Pressure 134/99 H 07/29/25 09:48 Pulse Oximetry 100 07/29/25 09:48 Temperature 97.4 F L 07/29/25 09:48 Pulse Rate 78 07/29/25 14:39 Respiratory Rate 15 07/29/25 14:39 Blood Pressure 132/68 07/29/25 14:39 Pulse Oximetry 100 07/29/25 14:39 Procedures Laceration Laceration 1: Time: 13:51 Site: upper extremity Side (If applicable): right Size (cm): 2 Description: linear, irregular and clean Depth: simple, single layer Local Anesthetic: lidocaine 1% Amount of anesthesia used (mL): 2 Pre-repair: wound explored, irrigated extensively and minor debridement ====== Skin Level ====== Skin layer closed with: prolene Size (cm): 4-0 Number of sutures: 4 Technique: simple, interrupted ====== Subcutaneous Layer ====== ====== Muscle Layer ====== ====== Tendon Layer ====== Medical Decision Making MDM Narrative Medical decision making narrative: 59-year-old female present to the emergency department for evaluation after having a fall after stumbling while carrying a large CR TV. Patient does have left paraspinal muscular tenderness to palpation with no midline spinal tenderness. Patient did have injury to her right ring finger at the base. Patient does have a small laceration. No acute fractures or dislocation. X-ray of spine does show a compression fracture. Patient does have a remote history of a significant fall during which she had landed on her bottom after slipping on ice. Patient states her back did here for an extended period time after that. Patient is neurologically intact. Laceration was repaired as described above. Patient states that her tetanus is up-to-date. Patient was updated on wound care. Patient was provided medications for pain control. Differential Diagnosis Differential Diagnosis: Back pain, back spasm, back fracture, hand fracture, hand laceration Vital Signs Vital Signs: Vital Signs Temperature 97.4 F L 07/29/25 09:48 Pulse Rate 89 07/29/25 09:48 Respiratory Rate 17 07/29/25 09:48 Blood Pressure 134/99 H 07/29/25 09:48 Pulse Oximetry 100 07/29/25 09:48 Temperature 97.4 F L 07/29/25 09:48 Pulse Rate 78 07/29/25 14:39 Respiratory Rate 15 07/29/25 14:39 Blood Pressure 132/68 07/29/25 14:39 Pulse Oximetry 100 07/29/25 14:39 Imaging Data Radiologist's impression: Impressions Lumbar Spine X-Ray 07/29/25 12:33 IMPRESSION: 1. Superior endplate compression fracture L1. Discharge Plan Discharge Clinical Impression: Hand injury, Hand laceration, Closed compression fracture of L1 vertebra Patient Disposition: Home Condition: Stable Instructions: Antibiotic Form, Laceration (ED) Additional Instructions: [place] for pain control. Flexeril for muscle spasm. Wound care as directed. Have sutures removed in the next 7-10 days. Have close follow-up with her primary care physician. If you have any worsening symptoms and please call or return to the emergency department. Patient Language: Citizen Of [place] Prescriptions: New cyclobenzaprine 10 mg tablet 10 mg PO BID PRN (Reason: muscle spasm) Qty: 14 0RF hydrocodone-acetaminophen 5-325 mg tablet 1 tablet PO Q12H PRN (Reason: pain) Qty: 14 0RF Follow-up/Referrals: Vaishnavi,MARY Escobedo [Primary Care Provider]
[2025-07-29] MEDS: HYDROmorphone HCL INJ (*CRX) 1 MG/ML SYR 0.5 MG IV PUSH (12:25)
[2025-07-29] MEDS: CYCLOBENZAPRINE HCL 10 MG TABLET PO (12:25)
[2025-07-29 13:27] VITALS: BP 134/74; PULSE 73; RESP 15; O2SAT 97
[2025-07-29 14:39] VITALS: BP 132/68; PULSE 78; RESP 15; O2SAT 100
== END 2025-07-29 14:39 | disposition home or self-care (01) ==
PROVIDERS: Emergency Provider Emergency Medicine; PCP Registered Nurse
DX: S32.010A Wedge compression fracture of first lumbar vertebra, initial encounter for closed fracture (principal); S61.411A Laceration without foreign body of right hand, initial encounter; W01.0XXA Fall on same level from slipping, tripping and stumbling without subsequent striking against object, initial encounter; W20.8XXA Other cause of strike by thrown, projected or falling object, initial encounter
CPT/HCPCS: 12001; 72100; 73130; 96374; 99284; A9270; J1171